=== PATIENT | male | born 1995 | race Caucasian/White ===

== ENCOUNTER 2018-06-06 17:21 | Emergency (ER) | payer BC ==
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
[2018-06-06] MEDS ORDERED: NS(*) 0.9% 1000 ML BAG 1,000 ML IV ONE (17:47)
[2018-06-06 18:08] LABS: PLATELET COUNT, AUTOMATED 263 K/uL (150-450)
[2018-06-06 18:30] VITALS: BP 125/71
[2018-06-06] MEDS ORDERED: DIPHTH/TETANUS/ACEL. PERTUSSIS IM ONLY ONE (18:45)
--- NOTE | 2018-06-06 18:47 | RADIOLOGY IMAGING REPORT ---
[place] [facility] [place] NAME: Roberto Rosenthal : 1995 MR: [id number] V: [id number] EXAM DATE: ORDERING PHYSICIAN: MADDISON CORBIN TECHNOLOGIST: Location[place] [facility] [place] Patient: Roberto Rosenthal : 1995 Visit/Account:[id number] Date of Sevice: 06/06/[address] scan without contrast COMPARISONS: None ADDITIONAL PERTINENT HISTORY: Seizure TECHNIQUE: Multiple axial images were obtained from the skull base to the vertex without IV contrast . One of the following dose optimization techniques was utilized in the performance of this exam: Aut omated exposure control; adjustment of the mA and/or kV according to the patient's size; or use of an iterative reconstruction technique. Specific details can be referenced in the facility's radiology CT exam operational policy. FINDINGS: Midline shift: Negative Ventricles: Negative Brain parenchyma: Negative Extra-axial spaces: Negative Intracranial vasculature: Negative Osseous structures: Negative Paranasal sinuses and mastoid air cells: Negative Surrounding soft tissues and orbits: Negative IMPRESSION: Normal head CT scan without contrast. Report Dictated By: Christiano Hernandez MD at 06/06/2018 6:42 PM Report E-Signed By: Christiano Hernandez MD at 06/06/2018 6:44 PM [id number]
== END 2018-06-06 20:06 | disposition home or self-care (01) ==
LOC: ER 17:34
DX: R56.9 Unspecified convulsions (principal)
CPT/HCPCS: 36416; 70450; 80320; 82948; 83735; 85025; 90715; 96372; 99284; J7030; 82040; 82247; 82310; 82374; 82435; 82565; 82947; 84075; 84132; 84155; 84295; 84450; 84460; 84520

== ENCOUNTER → 2018-07-04 | Outpatient (CLI) | payer BC | LOC: LAB 18:35 | PROVIDERS: ATTEND Psychiatry & Neurology Neurology | DX: R56.9 Unspecified convulsions (principal) | CPT/HCPCS: 36415; 80177 ==

== ENCOUNTER → 2018-08-02 | Outpatient (CLI) | payer BC | LOC: LAB 17:50 | PROVIDERS: ATTEND Psychiatry & Neurology Neurology | DX: R56.9 Unspecified convulsions (principal) | CPT/HCPCS: 36415; 80177 ==